=== PATIENT | female | born 1950 | race Caucasian/White ===

== ENCOUNTER 2018-09-02 10:51 | Emergency (ER) | payer MEDICARE ==
--- NOTE | 2018-09-02 16:41 | CT ---
PRELIMINARY REPORT/[facility]/EMERGENTY AFTER-HOURS PROCEDURE CT Head Without Contrast EXAM DATE/TIME: 09/02/2018 11:18 AM CLINICAL HISTORY: 68 years old, female; Injury or trauma; Fall; Initial encounter; Concussion /head injury; Injury date : 09/02/2018; Injury details: PT fell hit back of head, slight nausea, no vomiting, no loc TECHNIQUE: Imaging protocol: Axial computed tomography images of the head/brain without contrast. Radiation optimization: All CT scans at this facility use at least one of these dose optimization delaney hniques: automated exposure control; mA and/or kV adjustment per patient size (includes targeted exam s where dose is matched to clinical indication); or iterative reconstruction. COMPARISON: No relevant prior studies available. FINDINGS: Brain: Mike white matter distinction is maintained throughout the brain. No radiographic evidence of intracranial hemorrhage. No CT evidence of mass hemorrhage or acute infarction. Ventricles: Ventricles are of normal size and configuration. Bones/joints: Unremarkable. No acute fracture. Sinuses: Visualized sinuses are unremarkable. No acute sinusitis. Mastoid air cells: Visualized mastoid air cells are unremarkable. No mastoid effusion. Soft tissues: Unremarkable. Other findings: No intra or extra-axial masses, lesions or collections. IMPRESSION: No acute intracranial process is appreciated. Thank you for allowing us to participate in the care of your patient. Dictated and Authenticated by: Jules Salas MD 09/02/2018 12:16 PM Central Time ([place] & [place]) FINAL REPORT CT OF THE BRAIN WITHOUT CONTRAST: Date: 09-02-[address] was done following trauma. FINDINGS: The ventricles are normal in size with no shift. No intracranial bleeding or extraaxial hematoma was seen. There is no sign of mass, edema, or stroke. The skull appears intact. No fractures were seen. The sphenoid sinus and mastoid air cells are clear. IMPRESSION: No acute intracranial findings. Report in agreement with the preliminary reading by [facility]. POS: HOME
== END 2018-09-02 12:18 | disposition home or self-care (01) ==
LOC: BURERS 10:51
DX: S06.0X0A Concussion without loss of consciousness, initial encounter (principal); M19.90 Unspecified osteoarthritis, unspecified site; E11.9 Type 2 diabetes mellitus without complications; I10 Essential (primary) hypertension; Z79.899 Other long term (current) drug therapy; Z79.82 Long term (current) use of aspirin; Z79.84 Long term (current) use of oral hypoglycemic drugs; W10.9XXA Fall (on) (from) unspecified stairs and steps, initial encounter
CPT/HCPCS: 70450

== ENCOUNTER 2022-01-07 13:50 | Emergency (ER) | payer MEDICARE ==
[2022-01-07 14:28] LABS: #Basophils 0.1 thou/uL (0.0-0.2); #Eosinphils 0.1 thou/uL (0.0-0.7); #Lymphocytes 1.5 thou/uL (1.20-3.40); #Monocytes 0.6 thou/uL (0.11-0.59); #Neutrophils 3.2 thou/uL (1.40-6.50); %Eosinophils 2.2 % (0.0-10.0); %Lymphocytes 27.3 % (21.0-51.0); %Monocytes 11.2 % (0.0-10.0); %Neutrophils 58.4 % (42.0-75.0); Hemoglobin 10.1 g/dL (12.0-16.0); Mean Corpuscular HGB CONC 32.3 g/dL (32.0-36.0); Mean Corpuscular Hemoglobin 33.5 pg (27.0-31.0); Mean Platelet Volume 7.7 fL (7.4-10.4); Platelet Count 149 thou/uL (130-400); Red Blood Cell (RBC) Count 3.01 mill/uL (4.20-5.40); White Blood Cell (WBC) Count 5.5 thou/uL (4.8-10.8)
[2022-01-07 14:42] LABS: ALT (SGPT) 44 U/L (8-55); AST (SGOT) 41 U/L (5-34); Albumin 3.7 g/dL (3.4-4.8); Alkaline Phosphatase 124 U/L (40-110); Anion Gap 12 mmol/L (10-20); BUN (Urea Nitrogen) 36 mg/dL (9.8-20.1); Bilirubin, Total 0.2 mg/dL (0.2-1.2); Calc. Creatinine Clearance 0 mL/min (70-130); Calcium 8.7 mg/dL (7.8-10.44); Carbon Dioxide 21 mmol/L (23-31); Chloride 114 mmol/L (98-107); Estimated GFR 30; Globulin 2.5 g/dL (2.4-3.5); Glucose 107 mg/dL (80-115); Potassium 5.2 mmol/L (3.5-5.1); Protein, Total 6.2 g/dL (5.8-8.1); Sodium 142 mmol/L (136-145)
[2022-01-07] MEDS ORDERED: Aspirin Chewable 81 MG TAB ONE (14:45)
[2022-01-07 14:53] LABS: Bilirubin Negative (Negative); Blood, Urine Negative (Negative); Clarity Clear (Clear); Glucose, Urine (Dipstick) Negative (Negative); Ketone, Urine Negative (Negative); Leukocyte Trace (Negative); Nitrite Negative (Negative); Protein, Urine (Dipstick) Negative (Neg-Trace); Urobilinogen 0.2 mg/dL (Less than 2); pH, Urine 5.5 (5.0-9.0)
[2022-01-07 15:00] LABS: RBC/HPF None Seen HPF (0-3)
[2022-01-07 15:01] LABS: Bacteria/HPF Rare-Few HPF (None Seen); Squamous Epithelial None Seen HPF (0-3)
== END 2022-01-07 17:58 | disposition left against medical advice (07) ==
LOC: BURERS 13:50
DX: G45.9 Transient cerebral ischemic attack, unspecified (principal); I10 Essential (primary) hypertension; E11.9 Type 2 diabetes mellitus without complications; Z79.82 Long term (current) use of aspirin; Z79.899 Other long term (current) drug therapy
CPT/HCPCS: 36416; 70450; 80053; 81003; 81015; 84484; 85025; 93005; 36415-59

== ENCOUNTER 2023-10-13 08:49 | Outpatient (CLI) | payer MEDICARE | END 2023-10-13 08:50 | disposition home or self-care (01) | LOC: BURCT 08:49 | PROVIDERS: ATTEND Family Medicine | DX: R19.02 Left upper quadrant abdominal swelling, mass and lump (principal); R63.4 Abnormal weight loss; K44.9 Diaphragmatic hernia without obstruction or gangrene; N28.1 Cyst of kidney, acquired; K57.30 Diverticulosis of large intestine without perforation or abscess without bleeding; K42.9 Umbilical hernia without obstruction or gangrene; Z90.710 Acquired absence of both cervix and uterus; Z90.49 Acquired absence of other specified parts of digestive tract | CPT/HCPCS: 74176 ==

== ENCOUNTER 2023-12-14 10:35 | Emergency (ER) | payer MEDICARE, OTHER ==
[2023-12-14] MEDS ORDERED: Boostrix 0.5 ML (Tdap) VIAL (>/=7 yrs of age) ONE (10:49)
== END 2023-12-14 11:20 | disposition home or self-care (01) ==
LOC: BURERS 10:35
DX: S51.812A Laceration without foreign body of left forearm, initial encounter (principal); I12.9 Hypertensive chronic kidney disease with stage 1 through stage 4 chronic kidney disease, or unspecified chronic kidney disease; E11.22 Type 2 diabetes mellitus with diabetic chronic kidney disease; N18.30 Chronic kidney disease, stage 3 unspecified; W22.8XXA Striking against or struck by other objects, initial encounter
CPT/HCPCS: 90471; 90715